=== PATIENT | female | born 1990 | race Caucasian/White ===

== ENCOUNTER 2025-04-25 09:37 | Emergency (ER) | payer MEDICAID, SELFPAY ==
[2025-04-25 09:38] VITALS: BMI 20.3
[2025-04-25 09:54] VITALS: BP 112/73; PULSE 97; RESP 16; TEMP 36.9; O2SAT 98; BMI 20.3
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
== END 2025-04-25 11:47 | disposition home or self-care (01) ==
PROVIDERS: Emergency Provider Emergency Medicine; PCP Family Medicine
DX: S13.4XXA Sprain of ligaments of cervical spine, initial encounter (principal); V89.2XXA Person injured in unspecified motor-vehicle accident, traffic, initial encounter
CPT/HCPCS: 70450; 72125; 99282